=== PATIENT | female | born 1975 | race Caucasian/White ===

== ENCOUNTER 2019-12-28 06:41 | Outpatient (REF) | payer MEDICARE, MEDICAID, SELFPAY ==
[2019-12-28 11:09] LABS: MANUAL DIFF FLAG NO
[2019-12-28 11:24] LABS: Basophils Absolute Auto 0.1 X10*3/uL (0.0-0.2); Basophils Percent Auto 1.1 % (0-2); Eosinophils Absolute Auto 0.2 X10*3/uL (0.0-0.4); Eosinophils Percent Auto 2.3 % (0-4); Hematocrit 41.4 % (37-47); Hemoglobin 13.9 g/dl (12.0-16.0); Imm Gran Abs Auto 0.02 X10*3/uL (0.00-0.03); Imm Gran Pct Auto 0.3 % (0.0-0.4); Lymphocytes Absolute Auto 1.7 X10*3/uL (1.2-4.9); Mean Corpuscular HGB Conc 33.6 g/dl (31.0-35.0); Mean Corpuscular Hemoglobin 32.2 pg (27.0-33.0); Mean Corpuscular Volume 95.8 fL (80-98); Mean Platelet Volume 10.1 fL (9.4-12.3); Monocytes Absolute Auto 0.4 X10*3/uL (0.1-1.2); Monocytes Percent Auto 6.4 % (2-11); Neutrophils Absolute Auto 4.3 X10*3/uL (2.0-8.3); Neutrophils Percent Auto 64.9 % (45-73); Platelet Count 341 X10*3/uL (160-400); Red Blood Count 4.32 X10*6/uL (4.20-5.50); Red Cell Distribution Width 12.2 % (11.0-16.0); White Blood Count 6.6 X10*3/uL (4.8-10.8)
[2019-12-28 11:44] LABS: Alanine Aminotransferase 20 U/L (0-31); Albumin Level 4.2 g/dL (3.5-5.0); Alkaline Phosphatase 50 U/L (39-117); Anion Gap 11 (12-20); Aspartate Amino Transferase 23 U/L (5-31); Bilirubin Total 0.3 mg/dL (0.0-1.0); Blood Urea Nitrogen 12 mg/dL (9-16); Calcium 8.8 mg/dL (8.4-10.2); Carbon Dioxide 28 mmol/L (22-29); Chloride 104 mmol/L (96-108); Cholesterol 173 mg/dL; Estimated Glomerular Filt Rate > 60; Glucose Fasting 93 mg/dL (60-99); HDL Cholesterol 61 mg/dL; LDL Cholesterol Calculated 100 mg/dl; Potassium 4.2 mmol/l (3.3-5.1); Sodium 139 mmol/L (135-145); Total Protein 6.7 g/dL (6.5-8.0); Triglycerides 60 mg/dL
[2019-12-28 11:54] LABS: SARS COV2 IgG Negative (Negative)
[2019-12-28 12:06] LABS: TSH reflex Free T4 1.92 mIU/mL (0.32-4.0)
== END 2019-12-28 06:42 | disposition home or self-care (01) ==
LOC: HO.HMGCLDS 06:41
PROVIDERS: PCP Internal Medicine; Visit Provider Internal Medicine
DX: Z00.01 Encounter for general adult medical examination with abnormal findings (principal); F41.9 Anxiety disorder, unspecified; E01.0 Iodine-deficiency related diffuse (endemic) goiter
CPT/HCPCS: 36415; 80053; 80061; 84443; 85025; 86769

== ENCOUNTER → 2020-05-05 09:59 | Outpatient (BNVA) | payer MEDICARE, MEDICAID, SELFPAY | PROVIDERS: PCP Internal Medicine; Visit Provider Advanced Practice Midwife ==

== ENCOUNTER 2020-10-24 08:34 | Outpatient (REF) | payer MEDICARE, MEDICAID, SELFPAY ==
--- NOTE | ~2020-10-24 | MM_ITS ---
EXAMINATION: MM SCREENING DIGITAL BREAST TOMOSYNTHESIS, BILATERAL CLINICAL INFORMATION: Screening. Asymptomatic. The lifetime risk of breast cancer based on the Tyrer-Cuzick Model is 11%. COMPARISON: Mammography: 08/31/2019, 08/22/2018, 08/02/2017 TECHNIQUE: Digital breast tomosynthesis is performed in both the craniocaudal and mediolateral oblique views along with computer-aided detection (CAD). Synthesized 2D images are generated from the tomosynthesis. FINDINGS: There are scattered areas of fibroglandular density (ACR BI-RADS breast composition Category b). There are no significant masses, abnormal calcifications, or other abnormalities. Parenchymal pattern is similar to prior exams. No significant changes. The axilla are unremarkable. MM/MM tomosynthesis screening BI IMPRESSION: No mammographic evidence of malignancy. ASSESSMENT: BI-RADS 1: Negative RECOMMENDATION: Routine annual mammography screening. This patient's information was entered into a reminder system with a target due date for their next mammogram.
== END 2020-10-24 08:35 | disposition home or self-care (01) ==
LOC: HO.MAMMO 08:34
PROVIDERS: Visit Provider Internal Medicine
DX: Z12.31 Encounter for screening mammogram for malignant neoplasm of breast (principal)
CPT/HCPCS: 77063; 77067

== ENCOUNTER 2021-07-13 10:56 | Outpatient (REF) | payer MEDICARE, MEDICAID, SELFPAY ==
[2021-07-17 22:07] LABS: HPV mRNA E6/E7 rflx Not Detected (Not Detected)
== END 2021-07-13 10:57 | disposition home or self-care (01) ==
LOC: HO.LAB 10:56
PROVIDERS: Visit Provider Advanced Practice Midwife
DX: Z01.419 Encounter for gynecological examination (general) (routine) without abnormal findings (principal); Z11.51 Encounter for screening for human papillomavirus (HPV)
CPT/HCPCS: 87624; 88142

== ENCOUNTER 2021-10-26 08:28 | Outpatient (REF) | payer MEDICARE, MEDICAID, SELFPAY ==
--- NOTE | ~2021-10-26 | MM_ITS ---
EXAMINATION: MM SCREENING DIGITAL BREAST TOMOSYNTHESIS, BILATERAL CLINICAL INFORMATION: Screening. Asymptomatic. The lifetime risk of breast cancer based on the Tyrer-Cuzick Model is 11%. COMPARISON: Mammography: 10/24/2020, 08/31/2019, 08/22/2018, 08/02/2017 TECHNIQUE: Digital breast tomosynthesis is performed in both the craniocaudal and mediolateral oblique views along with computer-aided detection (CAD). Synthesized 2D images are generated from the tomosynthesis. FINDINGS: There are scattered areas of fibroglandular density (ACR BI-RADS breast composition Category b). Parenchymal pattern is similar to prior studies and there is no interval mass or architectural abnormality or developing density. No abnormal calcifications. The axilla are stable. There are some granulomatous calcifications or tattoo pigment in a left axillary node similar to prior exams. The skin contours are smooth. MM/MM tomosynthesis screening BI IMPRESSION: No mammographic evidence of malignancy. ASSESSMENT: BI-RADS 2: Benign RECOMMENDATION: Routine annual mammography screening. This patient's information was entered into a reminder system with a target due date for their next mammogram.
== END 2021-10-26 08:29 | disposition home or self-care (01) ==
LOC: HO.MAMMO 08:28
PROVIDERS: PCP Internal Medicine; Visit Provider Internal Medicine
DX: Z12.31 Encounter for screening mammogram for malignant neoplasm of breast (principal)
CPT/HCPCS: 77063; 77067

== ENCOUNTER 2022-10-30 10:14 | Outpatient (AMB) | payer MEDICARE, MEDICAID, SELFPAY ==
--- NOTE | 2022-10-30 10:20 | MHC.OFFVIS ---
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 Scribed for KELLI Alfredo by Tania Lakhani medical education specialist, on 10/30/2022 at 10:39 am EST. Watch Train Inspector Required: No Information Interpreted: non-clinical & clinical Operational Intelligence Officer: Operational Intelligence Officer Present (Francesca) Allergies Cashews Allergy (Unknown, Uncoded 10/30/22 10:24) Swelling Is last menstrual period known: Yes Last menstrual period: 10/28/22 Post menopausal: No Patient : No HPI HPI Comments History of Present Illness Details She is here for a BC consult and would like to renew her OCP's. She denies any contraindications to control such as: migraines with aura, history of DVT or pulmonary emboli, high blood pressure, liver disease, thrombolic disorders, Lupus, +GIBRAN, or smoking. PFSH Medical History Acute arthritis ADD (attention deficit disorder) Allergies Anxiety Asthma High cholesterol Migraines Surgical History H/O LEEP History of knee surgery Social History Housing: Apartment Alcohol intake: never Patient Tobacco Use Status: Former Tobacco user Quit Date: 2012 Tobacco use type: Cigarette (1 pack per week ) e-Cigarette/Vaping Use: Never Used service: No Current occupational status: disabled Sexual orientation: Straight/Heterosexual Gender identity: Female Cognitive needs: No Hearing needs: No Vision needs: No Female Reproductive History Menstrual Duration of menses: 3-5 days Date of last menstrual period: 10/28/22 control method: pills Total pregnancies: 0 Date of last pap smear: 07/13/21 (neg pap and hpv) History of abnormal pap smear: Yes (hx Leep 04/30 ascus neg hpv) Date of Mammogram: 10/26/21 (Birad 2) Physical Exam Vital Signs: Last Vital Signs BP 110/72 10/30/22 10:21 BMI result Body Mass Index 31.0 Const General: cooperative, healthy appearing, comfortable, no acute distress, well developed, alert and awake Assessment & Plan Assessment & Plan (1) control counseling: Code(s): Z. - Encounter for other general counseling and advice on contraception Plan: Discussed: Continue Gloria. She was instructed to go to ER if she develops loss of vision, severe headache that does not resolve, chest pain, difficulty breathing, abdominal pain, or pain or tenderness in extremity. Call the office with any concerns. All of her questions and concerns were addressed to the best of my ability and shared decision making. She is agreeable to plan of care. Medications: Refilled norethindrone (contraceptive) (Gloria) 0.35 mg PO DAILY 84 tabs 1RF 84 days Coding Level of Care Code Est Pt Level 3 (47980) Diagnoses control counseling Z
[2022-10-30 10:21] VITALS: BP 110/72; BMI 31.0
== END 2022-10-30 11:13 | disposition home or self-care (01) ==
PROVIDERS: PCP Internal Medicine; Visit Provider Advanced Practice Midwife
DX: Z30.09 Encounter for other general counseling and advice on contraception (principal)
CPT/HCPCS: 99213

== ENCOUNTER → 2022-10-30 10:14 | Outpatient (BNVA) | payer MEDICARE, MEDICAID, SELFPAY | PROVIDERS: PCP Internal Medicine; Visit Provider Advanced Practice Midwife | DX: Z30.09 Encounter for other general counseling and advice on contraception (principal) | CPT/HCPCS: 99212 ==

== ENCOUNTER 2022-11-01 13:49 | Outpatient (REF) | payer MEDICARE, MEDICAID, SELFPAY | END 2022-11-01 13:50 | disposition home or self-care (01) | LOC: HO.MAMMO 13:49 | PROVIDERS: PCP Internal Medicine; Visit Provider Internal Medicine | DX: Z12.31 Encounter for screening mammogram for malignant neoplasm of breast (principal) | CPT/HCPCS: 77063; 77067 ==

== ENCOUNTER → 2022-11-01 14:00 | Outpatient (BNV) | payer MEDICARE, MEDICAID, SELFPAY | PROVIDERS: PCP Internal Medicine; Visit Provider Radiology Diagnostic Radiology | DX: Z12.31 Encounter for screening mammogram for malignant neoplasm of breast (principal) | CPT/HCPCS: 77063; 77067 ==

== ENCOUNTER 2023-05-28 11:09 | Outpatient (AMB) | payer MEDICARE, MEDICAID, SELFPAY ==
--- NOTE | 2023-05-28 11:12 | A.OFFVIS_ITS ---
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 Doing well with no concerns. She tries to eat healthy and stays active with exercise. Regular monthly menses. Doing well on POP's. She denies any contraindications to control such as: migraines with aura, history of DVT or pulmonary emboli, high blood pressure, liver disease, thrombolic disorders, Lupus, +GIBRAN, breast cancer, or smoking. Currently is sexually active with same monogamous partner. She denies vaginal itching and irritation. STI screening offered; she declined. Denies family history of breast, ovarian or colon cancer. Last pap smear 2021, negative. Mammogram: 2022. [facility] Medical History Migraines ADD (attention deficit disorder) High cholesterol Acute arthritis Allergies Anxiety Asthma Surgical History H/O LEEP History of knee surgery Social History Housing: Apartment Alcohol intake: never Patient Tobacco Use Status: Former Tobacco user Quit Date: 2012 Tobacco use type: Cigarette (1 pack per week ) e-Cigarette/Vaping Use: Never Used service: No Current occupational status: disabled Sexual orientation: Straight/Heterosexual Gender identity: Female Cognitive needs: No Hearing needs: No Vision needs: No Female Reproductive History Menstrual Duration of menses: 3-5 days Date of last menstrual period: 05/22/23 control method: pills Total pregnancies: 0 Date of last pap smear: 07/13/21 (neg pap and hpv) History of abnormal pap smear: Yes (04/30 ascus neg hpv, hx leep) Date of Mammogram: 11/01/22 (Birad 1) Review of Systems Const All systems reviewed & are unremarkable except as noted in HPI and below Reports as per HPI Eyes Reports no additional complaints ENT Reports no additional complaints Card Reports no additional complaints Resp Reports no additional complaints GI Reports as per HPI and Reports no additional complaints Reports as per HPI Musc Reports no additional complaints Skin/Breast Reports as per HPI Neuro Reports no additional complaints Psych Reports no additional complaints Endo Reports no additional complaints Danilo/Lymph Reports no additional complaints Aller/Immun Reports no additional complaints Physical Exam Vital Signs: Last Vital Signs BP 110/76 05/28/23 11:14 BMI result Body Mass Index 30.5 Const General: cooperative, healthy appearing, no acute distress, well developed and alert Orientation/consciousness: patient oriented x3 HEENT Head: Yes normal to inspection Eyes General: appearance normal, both eyes and all related structures Neck Neck: Yes normal visual inspection Thyroid: Thyroid normal Chest Chest palpation & inspection: normal inspection of the chest and other (no puckering, dimpling, peau de orange, retraction, discharge, masses) Breast/axilla inspection: normal inspection of the breasts Breast/axilla palpation: normal palpation of the breasts Resp Effort & Inspection: normal respiratory effort GI Inspection: Yes normal to inspection Palpation (GI): Soft to palpation Rectal Exam - Female: deferred General: Yes bladder normal to palpation External Female Exam: normal external appearance and normal appearance of the urethra Speculum Exam - Vagina: normal appearance of the vagina, normal palpation and normal vaginal discharge Speculum Exam - Cervix: normal appearance of the cervix and normal palpation Bimanual exam- vagina & uterus: normal bimanual exam, normal palpation, uterine size normal, bladder normal to palpation, normal palpation and non-tender Bimanual Exam- Adnexa, other: no masses Skin General skin exam: no rashes or lesions noted Rashes: no rashes Neuro General: patient oriented x3 Cognition (Neuro): normal cognition Extrem General: Yes normal to inspection Psych Attitude: cooperative Thought process: Normal thought process present Assessment & Plan Assessment & Plan (1) Encounter for well woman exam with routine gynecological exam: Code(s): Z01.419 - Encounter for gynecological examination (general) (routine) without abnormal findings Plan Discussed: Current recommendations for pap smears per ASCCP guidelines. Breast awareness and periodic breast exams. Maintain a healthy lifestyle including a well balanced diet and routine exercise. Mammogram yearly. control hormone use warnings: go to ER if and loss of vision, blindness, severe headache, chest pain or difficulty breathing, severe abdominal pain, or any pain or swelling in an extremity. Patient verbalizes understanding and agrees to the plan of care. She was given opportunity to ask questions and all questions were answered to the best of my ability. RTO in one year for annual bit tapper examination. This note is constructed using voice recognition software. While every effort has been made to ensure accuracy, tank truck loader errors may have been included. Medications: Refilled norethindrone (contraceptive) (Gloria) 0.35 mg PO DAILY 84 tabs 4RF 84 days Coding Level of Care Code Est Pt Prev Care 40-64y(69965) Diagnoses Encounter for well woman exam with routine gynecological exam Z01.419
[2023-05-28 11:14] VITALS: BP 110/76; BMI 30.5
== END 2023-05-28 11:35 | disposition home or self-care (01) ==
PROVIDERS: PCP Internal Medicine; Visit Provider Advanced Practice Midwife
DX: Z01.419 Encounter for gynecological examination (general) (routine) without abnormal findings (principal)
CPT/HCPCS: G0101

== ENCOUNTER → 2023-05-28 11:09 | Outpatient (BNVA) | payer MEDICARE, MEDICAID, SELFPAY | PROVIDERS: PCP Internal Medicine; Visit Provider Advanced Practice Midwife | DX: Z01.419 Encounter for gynecological examination (general) (routine) without abnormal findings (principal) | CPT/HCPCS: G0101 ==

== ENCOUNTER 2024-07-13 11:12 | Outpatient (AMB) | payer MEDICARE, MEDICAID, SELFPAY ==
--- NOTE | 2024-07-13 11:18 | A.OFFVIS_ITS ---
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 Kettle Hand: Kettle Hand Present (Kiley) Accompanied by: Self / Same As Patient Allergies Cashews Allergy (Unknown, Uncoded 05/28/23 11:14) Swelling Medication List - Last Reconciled 07/13/24 by Fanta Tracy CNM amitriptyline 25 mg PO BEDTIME dextroamphetamine-amphetamine 10 mg 1 tab PO BID epinephrine IM fluticasone propionate 220 mcg/actuation 1 puff PO BID norethindrone (contraceptive) (Gloria) 0.35 mg PO DAILY 84 days Is last menstrual period known: Yes Last menstrual period: 06/14/24 Post menopausal: No HPI HPI 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 She is on norethindrone control pills and has been for years and has no issues or problems with them whatsoever she gets her periods every month and they are normal for her with no issues. She is not having any huong menopausal symptoms at all either she has no negative side effects to the pills. 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 She is going to be rescheduling her mammogram because she missed it. She tries to eat well and she walks for exercise she is sexually active with her partner and has absolutely no concerns about STIs and declines testing. She had an abnormal Pap smear/LEEP when she was 24 years old she has never had a problem with the Pap smear since then and it was over half her life ago.. [facility] Medical History (Updated 07/13/24 @ 11:38 by Fanta Tracy CNM) Migraines ADD (attention deficit disorder) High cholesterol Acute arthritis Allergies Anxiety Asthma Surgical History (Updated 07/13/24 @ 11:38 by Fanta Tracy CNM) H/O LEEP History of knee surgery Social History Housing: Apartment Alcohol intake: never Patient Tobacco Use Status: Former Tobacco user Tobacco use type: Cigarette e-Cigarette/Vaping Use: Never Used service: No Current occupational status: disabled Sexual orientation: Straight/Heterosexual Gender identity: Female Cognitive needs: No Hearing needs: No Vision needs: No Female Reproductive History Menstrual Duration of menses: 3-5 days Date of last menstrual period: 06/14/24 control method: pills (Purdys) Total pregnancies: 0 Date of last pap smear: 07/14/21 (Negative pap smear, negative HPV ) History of abnormal pap smear: Yes (ASCUS 2020) Date of Mammogram: 11/01/22 (BI RAD 1) Physical Exam Const General: healthy appearing, comfortable, no acute distress, well developed and alert Nutritional Appearance: average body habitus Orientation/consciousness: patient oriented x3 Limitations: no limitations HEENT Head: Yes normocephalic Neck Neck: Yes normal visual inspection Chest Chest palpation & inspection: normal inspection of the chest Breast/axilla inspection: normal inspection of the breasts and normal inspection of the axillae Breast/axilla palpation: normal palpation of the breasts and normal palpation of the axillae Resp Effort & Inspection: normal respiratory effort GI Inspection: Yes normal to inspection, No Abdominal wall edema and No distended Palpation (GI): Soft to palpation and nontender Other: External exam within normal limits vagina is pink and moist with normal- appearing whitish clear mucus. Mucosa is moist cervix long close thick mobile very posterior uterus small midposition mobile nontender good muscle tone with Kegel. General: Yes bladder normal to palpation External Female Exam: normal external appearance and normal appearance of the urethra Speculum Exam - Vagina: normal appearance of the vagina, normal palpation and normal vaginal discharge Speculum Exam - Cervix: normal appearance of the cervix, normal palpation and nontender Bimanual exam- vagina & uterus: normal bimanual exam, normal palpation, uterine size normal, bladder normal to palpation, consistency normal, normal palpation, uterine mobility normal, uterine shape normal, No Cervical tenderness present, non-tender and no cervical motion tenderness Bimanual Exam- Adnexa, other: normal adnexae, no masses, normal and No adnexal tenderness Neuro General: patient oriented x3 Results Reviewed Results Reviewed: Name: Talisha Long Age/Sex: 46/F Attending: Swati Dow CNM : 1975 Submitted by: Swati Dow CNM Copies to: MR #: [id number] Status: DEP REF Collected: 07/13/21 Location: .LAB Received: 07/14/21 Interpretation Satisfactory for evaluation. Mild inflammation. Negative for intraepithelial lesion or malignancy. HPV mRNA E6/E7: NOT DETECTED This assay detects E6/E7 viral messenger RNA (mRNA) from 14 high-risk HPV types (16, 18, 31, 33, 35, 39, 45, 51, 52, 56, 58, 59, 66, 68) HPV testing performed by [facility], [place], [place]. See reference laboratory pion of the EMR for entire report. Clinical Information LMP: 06/28/21 Previous PAP test: 2020, ASCUS Material Received ThinPrep-Cervical Electronically Signed By: IRISH Goff (ASCP) 07/25/21 1315 The Pap Test is a screening procedure with the inherent possibility of both false negative and false positive results. Results should be interpreted in the context of historic and current clinical findings. Reliability of the Pap Test is enhanced by performing the test on a regular repetitive basis. Patient: Talisha Long [facility]: 46[id number]#: [id number] Page 1 of 1 Assessment & Plan Assessment & Plan (1) Encounter for annual routine gynecological examination: Code(s): Z01.419 - Encounter for gynecological examination (general) (routine) without abnormal findings Category: Medical (2) H/O LEEP: Comment: at age 24 Code(s): Z98.890 - Other specified postprocedural states Category: Surgical (3) Surveillance for control, oral contraceptives: Code(s): Z30.41 - Encounter for surveillance of contraceptive pills Category: Medical Plan -----Discussed in this visit the following: healthy balanced diet, regular and consistent exercise, getting recommended health screens, doing the best she can for her particular health concerns, kegel exercises, pap smear screening and followup recommendations, mammography screening and SBE, normal changes in cycles in her life stage--- . Patient will be rescheduling her mammogram.. Reviewed precautions with OCPs. She is not having any issues but reminded to call if she ever did. Reviewed huong menopausal changes that she might anticipate and experience in the coming future. Discussed the range of experiences discussed healthy eating and self-care. Also discussed self-care prevention of worsening of asthma and allergies with her occupational exposures to dust and cats and dogs, RTC 1 year. She does have a primary who she sees and she does not have any major issues. Refill on her pills sent for the next year to her new pharmacy [facility]. Medications: Refilled norethindrone (contraceptive) (Gloria) 0.35 mg PO DAILY 84 days 84 tabs 4RF Coding Level of Care Code Est Pt Prev Care 40-64y(15850) Diagnoses Encounter for annual routine gynecological examination Z01.419 H/O LEEP Z98.890 Surveillance for control, oral contraceptives Z30.41
[2024-07-13 11:30] VITALS: BP 120/72; BMI 30.5
== END 2024-07-13 11:59 | disposition home or self-care (01) ==
LOC: HO.HWS 11:12
PROVIDERS: PCP Internal Medicine; Visit Provider Advanced Practice Midwife
DX: Z01.419 Encounter for gynecological examination (general) (routine) without abnormal findings (principal); Z98.890 Other specified postprocedural states; Z30.41 Encounter for surveillance of contraceptive pills
CPT/HCPCS: G0101

== ENCOUNTER → 2024-07-13 11:12 | Outpatient (BNVA) | payer MEDICARE, MEDICAID, SELFPAY | PROVIDERS: PCP Internal Medicine; Visit Provider Advanced Practice Midwife | DX: Z01.419 Encounter for gynecological examination (general) (routine) without abnormal findings (principal); Z98.890 Other specified postprocedural states | CPT/HCPCS: G0101 ==